=== PATIENT | female | born 1980 | race Two or more races ===

== ENCOUNTER 2017-08-07 20:22 | Emergency (ER) | payer MEDICAID ==
[~2017-08-07] VITALS: Ht 162.6 cm; Wt 95.3 kg
[~2017-08-07 20:22] MED LIST: BIRTH CONTROL
[2017-08-07] MEDS ORDERED: SODIUM CHLORIDE 0.9% 250 ML IV ONE (21:55)
[2017-08-07] MEDS ORDERED: LORazepam 2MG/ML-1ML VIAL IV ONE (22:00)
[2017-08-07 22:58] LABS: Basophils # (auto) 0.2 uL; Basophils % (auto) 1.4 % (0.0-2.0); Eosinophils # (auto) 0.2 uL; Eosinophils % (auto) 1.8 % (0.0-7.0); Hematocrit 38.9 % (36.0-46.0); Hemoglobin 12.9 g/dL (12.2-16.2); Lymphocytes % (auto) 24.4 % (10.0-50.0); Mean Corpuscular Hemoglobin 30.2 pg (28.0-32.0); Mean Corpuscular Hgb Conc. 33.1 g/dL (32.0-36.0); Mean Corpuscular Volume 91.2 fL (80.0-100.0); Monocytes # (auto) 1.1 uL; Monocytes % (auto) 8.9 % (0.0-12.0); Neutrophils # (auto) 7.8 uL; Neutrophils % (auto) 63.5 % (37.0-80.0); Nucleated Red Blood Cells % 0.1 %; Platelet Count (auto) 394 10^3/uL (140-450); Red Blood Cells 4.26 10^6/uL (4.0-5.20); Red Cell Distribution Width 14.3 % (11.8-14.3); White Blood Cell 12.2 10^3/uL (4.4-10.8)
[2017-08-07 23:13] LABS: Calcium 8.9 mg/dL (8.5-10.1); Potassium 3.4 mmol/L (3.5-5.1)
[2017-08-07 23:13] LABS: Urine Pregnacy Test Negative (Negative)
[2017-08-07 23:16] LABS: Albumin 3.6 g/dL (3.4-5.0); BUN/Creatinine Ratio 24.2
[2017-08-07 23:18] LABS: Bilirubin, Total 0.2 mg/dL (0.2-1.0); Total Protein 7.5 g/dL (6.4-8.2)
[2017-08-07 23:19] LABS: Urine Bacteria FEW /hpf (None Seen); Urine Blood Negative /uL (Negative); Urine Mucus FEW (None Seen); Urine Specific Gravity 1.029 (1.001-1.035); Urine WBC 31 /hpf (0 - 5)
[2017-08-07 23:30] LABS: Alcohol, Urine < 3.0 mg/dL (0-5); Amphetamine Screen, Urine NEGATIVE (NEGATIVE); Barbiturate Scree,Urine NEGATIVE (NEGATIVE); Benzodiazephine Screen, Urine NEGATIVE (NEGATIVE); Cannabinoid Screen, Urine NEGATIVE (NEGATIVE); Opiate Scree,Urine NEGATIVE (NEGATIVE); Phencyclidine Screen, Urine NEGATIVE (NEGATIVE)
[2017-08-07 23:33] LABS: Cocaine Screen, Urine NEGATIVE (NEGATIVE)
[2017-08-08 03:30] VITALS: BP 133/95
== END 2017-08-08 03:04 | disposition home or self-care (01) ==
LOC: EDBD 20:22 → ER 20:25
DX: F44.4 Conversion disorder with motor symptom or deficit (principal); I10 Essential (primary) hypertension; J45.909 Unspecified asthma, uncomplicated; F12.10 Cannabis abuse, uncomplicated
CPT/HCPCS: 36415; 70450; 80053; 80307; 81001; 81025; 85025; 96374; 99285; J2060; 93005

== ENCOUNTER 2024-05-28 12:55 | Emergency (ER) | payer MEDICAID ==
[~2024-05-28] VITALS: Ht 157.5 cm; Wt 105.0 kg
[2024-05-28 13:01] VITALS: PULSE 92; RESP 20; O2SAT 100
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
[2024-05-28 14:17] LABS: Potassium 4.2 mmol/L (3.5-5.1); Sodium 139 mmol/L (136-145)
[2024-05-28 14:18] LABS: Anion Gap 11 (5-15)
[2024-05-28 14:19] LABS: Calcium 8.8 mg/dL (8.7-10.4)
[2024-05-28 14:23] LABS: Glucose 87 mg/dL (74-106)
[2024-05-28 14:24] LABS: BUN/Creatinine Ratio 20.4 (10.0-20.0); Blood Urea Nitrogen 10 mg/dL (9-23)
[2024-05-28 14:27] LABS: Blood Alcohol < 3.0 mg/dL (<10); Carbon Dioxide 20 mmol/L (20-31); Chloride 108 mmol/L (98-107)
[2024-05-28 14:29] LABS: Hematocrit 34.5 % (36.0-46.0); Hemoglobin 11.1 g/dL (12.2-16.2); Mean Corpuscular Hemoglobin 25.2 pg (28.0-32.0); Mean Corpuscular Hgb Conc. 32.3 g/dL (32.0-36.0); Mean Corpuscular Volume 78.1 fL (80.0-100.0); Platelet Count (auto) 388 10^3/uL (140-450); Red Blood Cells 4.42 10^6/uL (4.0-5.20); Red Cell Distribution Width 23.5 % (11.8-14.3)
[2024-05-28] MEDS: SODIUM CHLORIDE 0.9% 1,000 ML IV ONE (14:30)
[2024-05-28 14:32] LABS: Basophils % (manual) 0 (0.0-2.0); Blast Cells 0; Metamyelocytes % 0; Myelocytes % 0; Promyelocytes % 0; Reactive Lymphocytes 0
[2024-05-28 15:11] LABS: Urine Bacteria None Seen /hpf (None Seen)
--- NOTE | 2024-05-28 15:29 | DVH ---
CHEST RADIOGRAPH Indication: syncope Technique: Single frontal view of the chest was obtained COMPARISON: None FINDINGS: Lines and Tubes: None Lungs: Clear Pleura: No effusion. No pneumothorax. Cardiomediastinal contours: Unremarkable Bones: Unremarkable IMPRESSION: No acute disease.
[2024-05-28 15:32] LABS: Urine Blood Negative /uL (Negative); Urine Clarity Clear (Clear); Urine Color Colorless (Yellow); Urine Mucus FEW (None Seen); Urine Protein, UAD Negative (Negative); Urine Specific Gravity 1.017 (1.001-1.035); Urine Squamous Epithelial Cell FEW /hpf (<5); Urine Urobilinogen Normal (Negative); Urine WBC 6 /HPF (0-5)
[2024-05-28 15:38] LABS: Amphetamine Screen, Urine Neg (NEGATIVE); Barbiturate Scree,Urine Neg (NEGATIVE); Benzodiazephine Screen, Urine Neg (NEGATIVE); Cannabinoid Screen, Urine Neg (NEGATIVE); Cocaine Screen, Urine Neg (NEGATIVE); Opiate Scree,Urine Neg (NEGATIVE); Phencyclidine Screen, Urine Neg (NEGATIVE)
--- NOTE | 2024-05-28 15:39 | DVH ---
EXAM: CT HEAD WITHOUT CONTRAST HISTORY: syncope COMPARISON: None TECHNIQUE: Noncontrast axial CT images of the head were performed. Sagittal and coronal reformatted images were obtained. This CT exam was performed using 1 or more of the following dose reduction techniques: Au tomated exposure control, adjustment of the mA and/or kv according to patient size, or the use of ite rative reconstruction techniques. Radiation Dose : Head: CT Dose: CTDI volume is 52.61 mGy. Dose-length product is 755.91 mGy*cm FINDINGS: No intracranial hemorrhage, mass, midline shift, hydrocephalus, or evidence of acute large vessel inf arct. The partially-visualized paranasal sinuses are clear. The bilateral mastoid air cells and mid dle ear spaces are clear. No cranial fracture or scalp edema. IMPRESSION: No acute intracranial process.
[2024-05-28 16:12] LABS: Band Neutrophils % (manual) 2; Eosinophils % (manual) 4 (0-7); Lymphocytes % (manual) 26 (10.0-50.0); Monocytes % (manual) 12 (0-12)
[2024-05-28 16:13] LABS: Platelet Estimate Adequate
--- NOTE | 2024-05-28 16:34 | ECG ---
[facility] Test Date: 2024-05-28 Test Time: 13:18:38 Pat Name: COLTON LEMUS Department: ED Room: Gender: F Group [employer] Specialist: NIALL : 1980 Requested By: WOLF MENDEZ Order Number: [id number] Reading MD: Yohan Brvao Measurements Intervals [place] Rate: 92 P: 66 IL: 163 QRS: 81 QRSD: 104 T: 28 QT: 373 QTc: 462 Interpretive Statements Sinus rhythm Low voltage, precordial leads Electronically Signed On 05-29-2024 18:47:09 PST by Yohan Bravo Please click the below link to view image of tracing.
[2024-05-28] MEDS: cefTRIAXone 1GM/50ML D5W 50 ML IV ONE (17:34)
[2024-05-28 17:45] VITALS: BP 144/87
[2024-05-28] MEDS ORDERED: CIPR-173 PO (19:40)
[2024-05-28 20:06] VITALS: PULSE 93; RESP 19; TEMP 98.3; O2SAT 98
== END 2024-05-28 20:17 | disposition home or self-care (01) ==
LOC: EDBD 12:55 → ER 12:55
DX: R55 Syncope and collapse (principal); N39.0 Urinary tract infection, site not specified; F41.9 Anxiety disorder, unspecified; J45.909 Unspecified asthma, uncomplicated; I10 Essential (primary) hypertension; F15.90 Other stimulant use, unspecified, uncomplicated; Z90.49 Acquired absence of other specified parts of digestive tract; Z88.0 Allergy status to penicillin; Z88.1 Allergy status to other antibiotic agents; Z88.5 Allergy status to narcotic agent; Z79.899 Other long term (current) drug therapy
CPT/HCPCS: 36415; 70450; 71045; 80048; 80307; 80320; 81001; 82947; 83880; 84484; 84702; 85007; 85027; 93005; 96361; 96365; 99285; J0696; J7030; 82962